=== PATIENT | male | born 1960 | race American Indian/Alaskan Native ===

== ENCOUNTER 2018-08-26 23:45 | Inpatient (IN) | payer OTHER ==
[2018-08-27 00:48] LABS: Basophils # (Auto) 0.1 K/mm3 (0.0-0.1); Basophils % (Auto) 0.9 % (0.0-1.8); Eosinophils % (Auto) 0.4 % (0.0-4.3); Hematocrit 42.8 % (35.5-45.6); Hemoglobin 14.3 gm/dl (11.8-15.2); Lymphocytes # (Auto) 1.6 K/mm3 (1.2-5.4); Lymphocytes % (Auto) 20.5 % (13.4-35.0); Mean Corpuscular HGB Conc 33 % (32-34); Mean Corpuscular Hemoglobin 31 pg (28-32); Mean Corpuscular Volume 93 fl (84-94); Monocytes # (Auto) 0.5 K/mm3 (0.0-0.8); Monocytes % (Auto) 6.6 % (0.0-7.3); Platelet Count 276 K/mm3 (140-440); Red Blood Count 4.59 M/mm3 (3.65-5.03); Red Cell Distribution Width 12.2 % (13.2-15.2)
[2018-08-27 00:50] LABS: BUN/Creatinine Ratio 17; Blood Urea Nitrogen 12 mg/dL (9-20); Calcium 8.7 mg/dL (8.4-10.2); Hemolysis Index 9
--- NOTE | 2018-08-27 01:00 | XRay Report ---
FINAL REPORT PROCEDURE: XR CHEST ROUTINE 2V TECHNIQUE: PA and lateral chest radiographs were obtained. CPT 34091 HISTORY: Shortness of breath COMPARISON: No prior studies are available for comparison. FINDINGS: Heart: Normal. Mediastinum/Vessels: Normal. Lungs/Pleural space: There are multifocal pulmonary infiltrates. The lungs are well-expanded. There is no pleural effusion or pneumothorax. Bony thorax: No acute osseous abnormality. Other: IMPRESSION: Heart size is normal. There are multifocal pulmonary infiltrates. This could be pneumonitis or pulmonary edema. The lungs are well-expanded. There is no pleural effusion or pneumothorax.
[2018-08-27] MEDS ORDERED: DUONEB *Not for PRN Use IH ONE (02:56)
[2018-08-27] MEDS ORDERED: LASIX IV ONE (03:53)
--- NOTE | 2018-08-27 04:10 | Emergency Department Report ---
ED Chest Pain HPI - General Chief Complaint: Dyspnea/Respdistress Stated Complaint: DIFF IN BREATHING,CP Time Seen by Provider: 08/27/18 02:42 Source: patient Mode of arrival: Ambulatory Limitations: No Limitations - History of Present Illness Initial Comments: 58-year-old male presents to the emergency department from home with complaint of a one-day history of shortness breath, wheezing, coughing and some chest pain. Patient was found to have a pulse ox of 91% on room air. He has a past history of diabetes and hypertension. He denies any tobacco or illicit drug use or abuse. He took some Mucinex for his symptoms with out much relief. No recent travel or sick contacts at home. His primary care physician is a Dr. Kleber Stoll. Severity scale (0 -10): 8 - Related Data Allergies Allergy/AdvReac Type Severity Reaction Status Date / Time No Known Allergies Allergy Unverified 08/27/18 00:19 Heart Score - HEART Score History: Slightly suspicious EKG: Non-specific Age: 45-65 Risk factors: 1-2 risk factors Troponin: < normal limit HEART Score: 3 - Critical Actions Critical Actions: 0-3 pts:0.9-1.7%risk of adverse cardiac event.Candidate for discharge ED Review of Systems ROS: Stated complaint: DIFF IN BREATHING,CP Other details as noted in HPI Comment: All other systems reviewed and negative Constitutional: denies: chills, fever Eyes: denies: eye pain, eye discharge, vision change ENT: denies: ear pain, throat pain Respiratory: cough, shortness of breath, wheezing Cardiovascular: chest pain. denies: palpitations Gastrointestinal: denies: abdominal pain, nausea, diarrhea Genitourinary: denies: urgency, dysuria Musculoskeletal: denies: back pain, joint swelling, arthralgia Skin: denies: rash, lesions Neurological: denies: headache, weakness, paresthesias ED Past Medical Hx - Past Medical History Hx Hypertension: Yes Hx Diabetes: Yes - Surgical History Additional Surgical History: Oral tumor. - Social History Smoking Status: Never Smoker Substance Use Type: None ED Physical Exam - General Limitations: No Limitations - Other Other exam information: GENERAL: The patient is well-developed well-nourished. HEENT: Normocephalic. Atraumatic. Patient has moist mucous membranes. EYES: Extraocular motions are intact. Pupils are equal and reactive to light bilaterally. NECK: Supple. Trachea is midline. CHEST/LUNGS: Coarse breath sounds at the chest. No tachypnea or accessory muscle use. There is no respiratory distress noted. HEART/CARDIOVASCULAR: Regular. There is no tachycardia. There is no gallop rub or murmur. ABDOMEN: Abdomen is soft, nontender. Patient has normal bowel sounds. There is no abdominal distention. SKIN: Skin is warm and dry. NEURO: The patient is awake, alert, and oriented. The patient is cooperative. The patient has no focal neurologic deficits. The patient has normal speech. MUSCULOSKELETAL: There is no tenderness or deformity. There is no limitation range of motion. There is no evidence of acute injury. ED Course Vital Signs 08/27/18 08/27/18 08/27/18 00:11 03:01 03:04 Temperature 97.7 F Pulse Rate 101 H 92 H Pulse Rate [ 90 Anterior Bilateral Throughout] Respiratory 20 17 Rate Respiratory 14 Rate [Anterior Bilateral Throughout] Blood Pressure 163/110 163/115 O2 Sat by Pulse 97 97 Oximetry 08/27/18 08/27/18 08/27/18 03:11 03:31 04:01 Temperature Pulse Rate 118 H 89 Pulse Rate [ 94 H Anterior Bilateral Throughout] Respiratory 19 18 Rate Respiratory 16 Rate [Anterior Bilateral Throughout] Blood Pressure 160/120 161/113 O2 Sat by Pulse 95 96 Oximetry 08/27/18 08/27/18 05:01 05:31 Temperature Pulse Rate 108 H 81 Pulse Rate [ Anterior Bilateral Throughout] Respiratory 17 17 Rate Respiratory Rate [Anterior Bilateral Throughout] Blood Pressure 143/100 149/120 O2 Sat by Pulse 94 97 Oximetry SCARLETT score - Scarlett Score Age > 65: (0) No Aspirin use within the Past 7 Days: (0) No 3 or more CAD Risk Factors: (0) No 2 or more Angina events in past 24 hrs: (1) Yes Known CAD with more than 50% Stenosis: (0) No Elevated Cardiac Markers: (0) No ST Deviation Greater than 0.5mm: (0) No SCARLETT Score: 1 ED Medical Decision Making - Lab Data Result diagrams: 08/27/18 00:22 08/27/18 00:22 - EKG Data -: EKG Interpreted by Ia EKG shows normal: sinus rhythm, axis, intervals, QRS complexes (Q waves to the anterior leads), ST-T waves (T-wave inversions to the lateral leads) Rate: tachycardia (106 bpm) - EKG Data When compared to previous EKG there are: previous EKG unavailable Interpretation: other (sinus tachycardia, Q waves to the anterior leads, T-wave inversions to the lateral leads) - Radiology Data Radiology results: image reviewed interpreted by me: Chest x-ray shows some pulmonary vascular congestion and some mild pulmonary edema. - Medical Decision Making Patient presents with some acute shortness of breath, chest discomfort, wheezing that started earlier in the day. He was found to triage to have low pulse ox on room air. He was placed on nasal cannula with some improvement. No signs of respiratory distress. He has some coarse breath sounds. Chest x- ray appears consistent with some pulmonary edema. BNP came back at about 1100. Negative first troponin. Negative d-dimer. EKG does not show any signs of ST elevation LA. He was given a breathing treatment and a dose of Lasix. He will be admitted to the hospital for further evaluation and treatment and was except for admission by the hospitalist, Dr. Hawley. - Differential Diagnosis CHF, LA, PE, pneumonia Critical Care Time: No Critical care attestation.: If time is entered above; I have spent that time in minutes in the direct care of this critically ill patient, excluding procedure time. ED Disposition Clinical Impression: CHF (congestive heart failure) Qualifiers: Heart failure type: unspecified Heart failure chronicity: acute Qualified Code( s): I50.9 - Heart failure, unspecified Dyspnea Qualifiers: Dyspnea type: shortness of breath Qualified Code(s): R06.02 - Shortness of breath; R06.00 - Dyspnea, unspecified; R06.01 - Orthopnea Hypertension Qualifiers: Hypertension type: essential hypertension Qualified Code(s): I10 - Essential ( primary) hypertension Disposition: OP ADMIT IP TO THIS HOSP Is pt being admited?: Yes Condition: Fair Time of Disposition: 06:36
[2018-08-27] MEDS ORDERED: TYLENOL PO PRN (05:13)
[2018-08-27] MEDS ORDERED: SODIUM CHLORIDE FLUSH SYRINGE 10 ML IV PRN (05:13)
[2018-08-27] MEDS ORDERED: D50W (25GM) Syringe IV PRN (05:13)
[2018-08-27] MEDS ORDERED: ZOFRAN IV PRN (05:13)
--- NOTE | 2018-08-27 05:13 | History and Physical Report ---
History of Present Illness Date of examination: 08/27/18 History of present illness: 71-year-old man with a history of hypertension, diabetes comes emergency room with complaints of shortness of breath, PND, orthopnea that started yesterday. Also complaining of chest pain in the left substernal area which he described as a tightness, constant, intensity 7/10, no radiation, can identify exacerbating or relieving factors. Denies nausea or vomiting, diaphoresis or palpitation. He had a stress test in April of this year, he was told he had a weak heart and has been following up with [facility] Review of systems Constitutional: no weight loss, chills, fever Ears, eyes, nose, mouth and throat: no nasal congestion, no nasal discharge, no sinus pressure, no vision change, no red eye. Neck: No neck pain or rigidity. Cardiovascular: no chest pain, palpitations Respiratory: no cough Gastrointestinal: no abdominal pain hematochezia Genitourinary : no frequency , no hematuria Musculoskeletal: no joint swelling or muscle ache Integumentary: no rash, no pruritis Neurological: no parathesias, no numbness, no focal weakness Endocrine: no cold or heat intolerance, no polyuria or polydipsia Hematologic/Lymphatic: no easy bruising, no easy bleeding, no gland swelling Allergic/Immunologic: no urticaria, no angioedema. PAST MEDICAL HISTORY: Diabetes, hypertension PAST SURGICAL HISTORY: Removal of oral tumor SOCIAL HISTORY: No alcohol, no drugs, tobacco FAMILY HISTORY: Diabetes, hypertension Medications and Allergies Allergies Allergy/AdvReac Type Severity Reaction Status Date / Time No Known Allergies Allergy Unverified 08/27/18 00:19 Exam - Physical Exam Narrative exam: Gen. appearance: Patient lying in bed, no apparent distress HEENT: Normocephalic, atraumatic, pupils equally round and reactive to light, extraocular movement intact, and no sclericterus,. No JVD or thyromegaly or nodule,neck supple, no carotid bruit ,mucous membranes moist, no exudate or erythema Heart: S1, S2, regular rate and rhythm Lungs: Crackles, breathing comfortable Abdomen: Positive bowel sounds, non-tender, nondistended, no organomegaly Extremity:no edema cyanosis, clubbing Skin: no rash, dry, warm Neuro: Oriented 3, cranial nerves II-12 intact, speech is fluent, motor and sensory intact - Constitutional Vitals: Temp Pulse Resp BP Pulse Ox 97.7 F 108 H 17 143/100 94 08/27/18 00:11 08/27/18 05:01 08/27/18 05:01 08/27/18 05:01 08/27/18 05:01 Results - Labs CBC & Chem 7: 08/27/18 00:22 08/27/18 00:22 Labs: Abnormal lab results 08/27/18 08/27/18 08/27/18 Range/Units 00:22 00:22 03:10 RDW 12.2 L (13.2-15.2) % Seg Neutrophils % 71.6 H (40.0-70.0) % POC ABG pCO2 (35-45) Sodium 134 L (137-145) mmol/L Chloride 97.7 L (98-107) mmol/L Creatinine 0.7 L (0.8-1.5) mg/dL Glucose 337 H (75-100) mg/dL NT-Pro-B Natriuret Pep 1151 H (0-900) pg/mL 08/27/18 Range/Units 03:16 RDW (13.2-15.2) % Seg Neutrophils % (40.0-70.0) % POC ABG pCO2 48.4 H (35-45) Sodium (137-145) mmol/L Chloride (98-107) mmol/L Creatinine (0.8-1.5) mg/dL Glucose (75-100) mg/dL NT-Pro-B Natriuret Pep (0-900) pg/mL - Imaging and Cardiology EKG: image reviewed Chest x-ray: report reviewed Assessment and Plan Assessment New-onset CHF, probably systolic dysfunction Chest pain Hypertension Diabetes Plan Admit to medicine Diurese his IV Lasix Check cardiac enzymes, echo, consult cardiology Start Beta bernie, LATONIA inhibitor, aspirin Monitor I's and O's, daily weights Check fingersticks and initiate insulin sliding scale DVT prophylaxis
[2018-08-27 05:24] LABS: Bilirubin,Urine NEG (Negative); Blood,Urine NEG (Negative); Color,Urine Colorless (Yellow); Protein,Urine <15 mg/dL mg/dL (Negative); Urobilinogen,Urine < 2.0 mg/dL (<2.0); WBC,Urine < 1.0 /HPF (0.0-6.0)
[2018-08-27 06:17] LABS: Creatine Kinase MB 3.2 ng/mL (0.0-4.0)
[2018-08-27] MEDS: LASIX IV SCH ×2 (06:44→18:13)
[2018-08-27] MEDS ORDERED: APRESOLINE IV PRN (07:19)
[2018-08-27] MEDS ORDERED: COREG PO SCH ×2 (10:00)
[2018-08-27] MEDS ORDERED: ZESTRIL PO SCH ×2 (10:00)
--- NOTE | 2018-08-27 10:52 | Consultation ---
History of Present Illness Consult date: 08/27/18 Consult reason: congestive heart failure History of present illness: 58 YO man with h/o non ischemic cardiomyopathy, htn, and DM presented to hospital with increasing dyspnea on exertion, PND, and orthopnea. He has not had any episodes of chest pain, syncope or pre-syncope. Elevated BNP and pulmonary edema on chest Xray were consistent with CHF exacerbation. Prior cardiac evaluation included echocardiogram on 03/10/16 which revealed EF of 35% and subsequent coronary angiogram revealed no significant CAD. ECG reveals NSR with evidence of prior anterior-septal ID Past History Past Medical History: CAD, diabetes, hypertension Past Surgical History: Other (resection of oral lesion) Social history: denies: smoking, alcohol abuse, IV drug use Family history: diabetes Medications and Allergies Allergies Allergy/AdvReac Type Severity Reaction Status Date / Time No Known Allergies Allergy Unverified 08/27/18 00:19 Active Meds: Active Medications Acetaminophen (Tylenol) 650 mg PO Q4H PRN PRN Reason: Pain MILD(1-3)/Fever >100.5/CANTRELL Aspirin (Baby Aspirin) 81 mg PO QDAY [facility] Carvedilol (Coreg) 25 mg PO BID [facility] Dextrose (D50w (25gm) Syringe) 50 ml IV PRN PRN PRN Reason: Hypoglycemia Enoxaparin Sodium (Lovenox) 40 mg SUB-Q QDAY [facility] Furosemide (Lasix) 40 mg IV BID@0600,1800 NANY Last Admin: 08/27/18 06:44 Dose: 40 mg Hydralazine HCl (Apresoline) 10 mg IV Q6HR PRN PRN Reason: Blood Pressure Insulin Glargine (Lantus) 15 units SUB-Q QHS [facility] Insulin Human Lispro (Humalog) 0 unit SUB-Q ACHS NANY; Protocol Lisinopril (Zestril) 40 mg PO QDAY [facility] Ondansetron HCl (Zofran) 4 mg IV Q8H PRN PRN Reason: Nausea And Vomiting Pneumococcal Polyvalent Vaccine (Pneumovax 23) 0.5 ml IM .ONCE ONE Stop: 08/27/18 12:01 Sodium Chloride (Sodium Chloride Flush Syringe 10 Ml) 10 ml IV BID NANY Sodium Chloride (Sodium Chloride Flush Syringe 10 Ml) 10 ml IV PRN PRN PRN Reason: LINE FLUSH Review of Systems All systems: negative (per hpi) Physical Examination Vital Signs Temp Pulse Resp BP Pulse Ox 97.7 F 101 H 20 163/110 97 08/27/18 00:11 08/27/18 00:11 08/27/18 00:11 08/27/18 00:11 08/27/18 00:11 General appearance: no acute distress Neck: Positive: neck supple Cardiac: Positive: Reg Rate and Rhythm. Negative: Audible Murmur Lungs: Positive: Rales (scattered crackles bilaterally) Abdomen: Positive: Soft, Active Bowel Sounds Extremities: Present: edema (trace LE edema) Results 08/27/18 00:22 08/27/18 00:22 Cardiac Enzymes 08/27/18 Range/Units 05:49 CK-MB (CK-2) 3.2 (0.0-4.0) ng/mL CBC 08/27/18 Range/Units 00:22 WBC 7.9 (4.5-11.0) K/mm3 RBC 4.59 (3.65-5.03) M/mm3 Hgb 14.3 (11.8-15.2) gm/dl Hct 42.8 (35.5-45.6) % Plt Count 276 (140-440) K/mm3 Lymph # 1.6 (1.2-5.4) K/mm3 [place] # 0.5 (0.0-0.8) K/mm3 Eos # 0.0 (0.0-0.4) K/mm3 Baso # 0.1 (0.0-0.1) K/mm3 Comprehensive Metabolic Panel 08/27/18 Range/Units 00:22 Sodium 134 L (137-145) mmol/L Potassium 4.5 (3.6-5.0) mmol/L Chloride 97.7 L (98-107) mmol/L Carbon Dioxide 25 (22-30) mmol/L BUN 12 (9-20) mg/dL Creatinine 0.7 L (0.8-1.5) mg/dL Glucose 337 H (75-100) mg/dL Calcium 8.7 (8.4-10.2) mg/dL Assessment and Plan Acute on chronic systolic heart failure NICMP with EF 35% based on echo 03/10/16 Htn DM Recommend: Continue IV diuresis Continue medical therapy for NICMP including beta benrie, LATONIA inhibitor Repeat echocardiogram
--- NOTE | 2018-08-27 11:11 | Event Note ---
Date: 08/27/18 Patient admitted today for new onset CHF with acute exacerbation. Patient seen and examined by me today. Continue current management.
[2018-08-27] MEDS: BABY ASPIRIN PO SCH (11:55)
[2018-08-27] MEDS: LOVENOX SUB-Q SCH (11:55)
[2018-08-27] MEDS: COREG PO SCH ×2 (11:56→22:23)
[2018-08-27] MEDS: SODIUM CHLORIDE FLUSH SYRINGE 10 ML IV SCH (11:56)
[2018-08-27] MEDS: ZESTRIL PO SCH (11:56)
[2018-08-27] MEDS ORDERED: PNEUMOVAX 23 IM ONE (12:00)
[2018-08-27] MEDS ORDERED: AFLURIA QUAD 2018-2019 SYRINGE IM ONE (12:00)
[2018-08-27 12:06] LABS: Creatine Kinase MB 2.9 ng/mL (0.0-4.0)
[2018-08-27] MEDS: HumaLOG SUB-Q SCH ×3 (12:08→22:22)
[2018-08-27] MEDS ORDERED: LANTUS SUB-Q SCH (22:00)
[2018-08-28] MEDS: SODIUM CHLORIDE FLUSH SYRINGE 10 ML IV SCH ×2 (02:00→10:10)
[2018-08-28] MEDS: LASIX IV SCH (06:10)
[2018-08-28 06:46] LABS: Basophils % (Auto) 0.4 % (0.0-1.8); Eosinophils % (Auto) 0.7 % (0.0-4.3); Hematocrit 42.8 % (35.5-45.6); Lymphocytes # (Auto) 1.9 K/mm3 (1.2-5.4); Lymphocytes % (Auto) 26.2 % (13.4-35.0); Mean Corpuscular HGB Conc 33 % (32-34); Mean Corpuscular Hemoglobin 30 pg (28-32); Mean Corpuscular Volume 93 fl (84-94); Monocytes # (Auto) 0.8 K/mm3 (0.0-0.8); Platelet Count 236 K/mm3 (140-440); Red Blood Count 4.61 M/mm3 (3.65-5.03); Red Cell Distribution Width 12.2 % (13.2-15.2)
[2018-08-28 07:12] LABS: BUN/Creatinine Ratio 18; Blood Urea Nitrogen 14 mg/dL (9-20); Calcium 8.9 mg/dL (8.4-10.2); Hemolysis Index 34
[2018-08-28] MEDS: HumaLOG SUB-Q SCH ×2 (09:38→12:10)
[2018-08-28] MEDS: BABY ASPIRIN PO SCH (10:09)
[2018-08-28] MEDS: LOVENOX SUB-Q SCH (10:09)
[2018-08-28] MEDS: ZESTRIL PO SCH (10:10)
[2018-08-28] MEDS: COREG PO SCH (10:10)
--- NOTE | 2018-08-28 10:30 | Progress Note ---
Assessment and Plan Assessment and plan: 71-year-old man with a history of hypertension, diabetes comes emergency room with complaints of shortness of breath, PND, orthopnea that started yesterday. Also complaining of chest pain in the left substernal area which he described as a tightness, constant, intensity 7/10, no radiation, can identify exacerbating or relieving factors. Denies nausea or vomiting, diaphoresis or palpitation. He had a stress test in April of this year, he was told he had a weak heart and has been following up with [facility] Cardiac catheterization patient had an ejection fraction of 35% previously New-onset CHF, probably systolic dysfunction Chest pain Hypertension Cardiomyopathy Diabetes Plan Continue current management. I've had extensive discussion with the patient about his dietary restrictions and also fluid restrictions the patient verbalized understanding 20 minutes spent counseling. Diurese his IV Lasix Continue diabetes management. I weights repeat echocardiogram Check A1c CONTINUE METFORMIN AT PATIENTS HOME DOSE ON DISCHARGE Start Beta bernie, LATONIA inhibitor, aspirin Monitor I's and O's, daily weights Check fingersticks and initiate insulin sliding scale DVT prophylaxis Discharge when plan by cardiology History Interval history: Patient is on examine this monitor reports medical improvement. Once into the discharge. He will follow up with cardiology outpatient. Hospitalist Physical - Physical exam Narrative exam: VITAL SIGNS: Reviewed. GENERAL: The patient appeared well nourished and normally developed. Vital signs as documented. HEAD: No signs of head trauma. EYES: Pupils are equal. Extraocular motions intact. EARS: Hearing grossly intact. MOUTH: Oropharynx is normal. NECK: No adenopathy, no JVD. CHEST: Chest with clear breath sounds bilaterally. No wheezes, rales, or rhonchi. CARDIAC: Regular rate and rhythm. S1 and S2, without murmurs, gallops, or rubs. VASCULAR: No Edema. Peripheral pulses normal and equal in all extremities. ABDOMEN: Soft, without detectable tenderness. No sign of distention. No rebound or guarding, and no masses palpated. Bowel Sounds normal. MUSCULOSKELETAL: Good range of motion of all major joints. Extremities without clubbing, cyanosis or edema. NEUROLOGIC EXAM: Alert and oriented x 3. No focal sensory or strength deficits. Speech normal. Follows commands. PSYCHIATRIC: Mood normal. SKIN: No rash or lesions. - Constitutional Vitals: Temp Pulse Resp BP Pulse Ox 98.2 F 81 18 126/77 98 08/28/18 08:45 08/28/18 08:45 08/28/18 08:45 08/28/18 08:45 08/28/18 08:45 General appearance: Present: no acute distress Results - Labs CBC & Chem 7: 08/28/18 05:19 08/28/18 05:19 Labs: Laboratory Last Values WBC 7.3 K/mm3 (4.5-11.0) 08/28/18 05:19 RBC 4.61 M/mm3 (3.65-5.03) 08/28/18 05:19 Hgb 14.0 gm/dl (11.8-15.2) 08/28/18 05:19 Hct 42.8 % (35.5-45.6) 08/28/18 05:19 MCV 93 fl (84-94) 08/28/18 05:19 MCH 30 pg (28-32) 08/28/18 05:19 MCHC 33 % (32-34) 08/28/18 05:19 RDW 12.2 % (13.2-15.2) L 08/28/18 05:19 Plt Count 236 K/mm3 (140-440) 08/28/18 05:19 Lymph % (Auto) 26.2 % (13.4-35.0) 08/28/18 05:19 [place] % (Auto) 11.0 % (0.0-7.3) H 08/28/18 05:19 Eos % (Auto) 0.7 % (0.0-4.3) 08/28/18 05:19 Baso % (Auto) 0.4 % (0.0-1.8) 08/28/18 05:19 Lymph # 1.9 K/mm3 (1.2-5.4) 08/28/18 05:19 [place] # 0.8 K/mm3 (0.0-0.8) 08/28/18 05:19 Eos # 0.0 K/mm3 (0.0-0.4) 08/28/18 05:19 Baso # 0.0 K/mm3 (0.0-0.1) 08/28/18 05:19 Seg Neutrophils % 61.7 % (40.0-70.0) 08/28/18 05:19 Seg Neutrophils # 4.5 K/mm3 (1.8-7.7) 08/28/18 05:19 D-Dimer 142.77 ng/mlDDU (0-234) 08/27/18 03:10 POC ABG pH 7.390 (7.35-7.45) 08/27/18 03:16 POC ABG pCO2 48.4 (35-45) H 08/27/18 03:16 POC ABG pO2 87 (80-105) 08/27/18 03:16 POC ABG HCO3 29.3 08/27/18 03:16 POC ABG Total CO2 31 08/27/18 03:16 POC ABG O2 Sat 96 08/27/18 03:16 POC ABG Base Excess 4 08/27/18 03:16 FiO2 28 % 08/27/18 03:16 Sodium 139 mmol/L (137-145) 08/28/18 05:19 Potassium 3.6 mmol/L (3.6-5.0) 08/28/18 05:19 Chloride 96.7 mmol/L (98-107) L 08/28/18 05:19 Carbon Dioxide 30 mmol/L (22-30) 08/28/18 05:19 Anion Gap 16 mmol/L 08/28/18 05:19 BUN 14 mg/dL (9-20) 08/28/18 05:19 Creatinine 0.8 mg/dL (0.8-1.5) 08/28/18 05:19 Estimated GFR > 60 ml/min 08/28/18 05:19 BUN/Creatinine Ratio 18 % 08/28/18 05:19 Glucose 111 mg/dL (75-100) H 08/28/18 05:19 POC Glucose 104 (70-105) 08/28/18 06:35 Calcium 8.9 mg/dL (8.4-10.2) 08/28/18 05:19 Total Creatine Kinase 147 units/L (55-170) 08/27/18 11:24 CK-MB (CK-2) 2.9 ng/mL (0.0-4.0) 08/27/18 11:24 CK-MB (CK-2) Rel Index 1.9 (0-4) 08/27/18 11:24 Troponin T < 0.010 ng/mL (0.00-0.029) 08/27/18 11:24 NT-Pro-B Natriuret Pep 1151 pg/mL (0-900) H 08/27/18 03:10 Urine Color Colorless (Yellow) 08/27/18 04:55 Urine Turbidity Clear (Clear) 08/27/18 04:55 Urine pH 6.0 (5.0-7.0) 08/27/18 04:55 Ur Specific [place] 1.005 (1.003-1.030) 08/27/18 04:55 Urine Protein <15 mg/dl mg/dL (Negative) 08/27/18 04:55 Urine Glucose (UA) >=500 mg/dL (Negative) 08/27/18 04:55 Urine Ketones Neg mg/dL (Negative) 08/27/18 04:55 Urine Blood Neg (Negative) 08/27/18 04:55 Urine Nitrite Neg (Negative) 08/27/18 04:55 Urine Bilirubin Neg (Negative) 08/27/18 04:55 Urine Urobilinogen < 2.0 mg/dL (<2.0) 08/27/18 04:55 Ur Leukocyte Esterase Neg (Negative) 08/27/18 04:55 Urine WBC (Auto) < 1.0 /HPF (0.0-6.0) 08/27/18 04:55 Urine RBC (Auto) 1.0 /HPF (0.0-6.0) 08/27/18 04:55
--- NOTE | 2018-08-28 11:15 | Progress Note ---
Assessment and Plan Acute on chronic systolic heart failure NICMP echo 03/2016 -LVEF 35% C 03/2016 -no significant CAD repeat echocardiogram revealed a LVEF 10-15% Htn DM Noncompliant with cardiac follow up. Recommend: Advised sodium/fluid restrictions. Continue medical therapy for NICMP. Stable cardiac cannon. Patient advised to f/u with [facility] in 3-5 days. Subjective Date of service: 08/28/18 Interval history: Patient reports he is feeling better; wants to go home. Objective Vital Signs Temp Pulse Resp BP Pulse Ox 08/28/18 10:00 100 08/28/18 08:45 98.2 F 81 18 126/77 98 08/28/18 04:09 97.6 F 84 18 131/86 95 08/28/18 00:28 98.0 F 17 89/58 08/27/18 20:40 88 08/27/18 19:36 98.7 F 88 18 139/88 95 08/27/18 17:30 97.7 F 86 18 137/88 98 08/27/18 12:05 98.1 F 18 144/97 - Physical Examination General: No Apparent Distress HEENT: Positive: PERRL Neck: Positive: neck supple Cardiac: Positive: Reg Rate and Rhythm Lungs: Positive: Decreased Breath Sounds Neuro: Positive: Grossly Intact Abdomen: Positive: Soft, Active Bowel Sounds Extremities: Absent: edema - Labs and Meds Cardiac Enzymes 08/27/18 Range/Units 11:24 CK-MB (CK-2) 2.9 (0.0-4.0) ng/mL CBC 08/28/18 Range/Units 05:19 WBC 7.3 (4.5-11.0) K/mm3 RBC 4.61 (3.65-5.03) M/mm3 Hgb 14.0 (11.8-15.2) gm/dl Hct 42.8 (35.5-45.6) % Plt Count 236 (140-440) K/mm3 Lymph # 1.9 (1.2-5.4) K/mm3 [place] # 0.8 (0.0-0.8) K/mm3 Eos # 0.0 (0.0-0.4) K/mm3 Baso # 0.0 (0.0-0.1) K/mm3 Comprehensive Metabolic Panel 10/22/18 Range/Units 05:19 Sodium 139 (137-145) mmol/L Potassium 3.6 (3.6-5.0) mmol/L Chloride 96.7 L (98-107) mmol/L Carbon Dioxide 30 (22-30) mmol/L BUN 14 (9-20) mg/dL Creatinine 0.8 (0.8-1.5) mg/dL Glucose 111 H (75-100) mg/dL Calcium 8.9 (8.4-10.2) mg/dL - Imaging and Cardiology EKG: image reviewed
[2018-08-28 11:52] VITALS: BP 113/65
--- NOTE | 2018-08-28 15:35 | Discharge Summary ---
Providers - Providers Date of Admission: 08/27/18 05:13 Attending physician: BARRON MCMAHAN MD 08/27/18 05:13 Consult to Physician [CONS] Routine Comment: Consulting Provider: YANIQUE DEMARCO Physician Instructions: Reason For Exam: chf new onset Primary care physician: [employer] Hospitalization Reason for admission: shortness of breath Condition: Stable Hospital course: 71-year-old man with a history of hypertension, diabetes comes emergency room with complaints of shortness of breath, PND, orthopnea that started yesterday. Also complaining of chest pain in the left substernal area which he described as a tightness, constant, intensity 7/10, no radiation, can identify exacerbating or relieving factors. Denies nausea or vomiting, diaphoresis or palpitation. He had a stress test in April of this year, he was told he had a weak heart and has been following up with [facility] Cardiac catheterization patient had an ejection fraction of 35% previously repeat echocardiogram showed an ejection fraction of 20% cardiology reviewed. This is likely secondary to nonischemic cardiomyopathy extensive discussion was had with the patient and the spouse about dietary restrictions fluid restrictions compliance with medical management with follow-up appointment patient was also recommended to follow up with cardiology in 3-5 days discussion with pertaining to sudden cardiac was had with the patient were answered. Discharge diagnosis New-onset CHF, probably systolic dysfunction Chest pain Hypertension Ischemic cardiomyopathy Diabetes Disposition: DC- TO HOME OR SELFCARE Time spent for discharge: 35 MINS Core Measure Documentation - Palliative Care Palliative Care/ Comfort Measures: Not Applicable - Core Measures Any of the following diagnoses?: heart failure - VTE Discharge Requirements Deep Vein Thrombosis/Pulmonary Embolism Present on Admission: No - Heart Failure Discharge Requirements LATONIA/ARB for LVSD if EF <40%: Yes Beta bernie at discharge: Yes Exam - Physical Exam Narrative exam: VITAL SIGNS: Reviewed. GENERAL: The patient appeared well nourished and normally developed. Vital signs as documented. HEAD: No signs of head trauma. EYES: Pupils are equal. Extraocular motions intact. EARS: Hearing grossly intact. MOUTH: Oropharynx is normal. NECK: No adenopathy, no JVD. CHEST: Chest with clear breath sounds bilaterally. No wheezes, rales, or rhonchi. CARDIAC: Regular rate and rhythm. S1 and S2, without murmurs, gallops, or rubs. VASCULAR: No Edema. Peripheral pulses normal and equal in all extremities. ABDOMEN: Soft, without detectable tenderness. No sign of distention. No rebound or guarding, and no masses palpated. Bowel Sounds normal. MUSCULOSKELETAL: Good range of motion of all major joints. Extremities without clubbing, cyanosis or edema. NEUROLOGIC EXAM: Alert and oriented x 3. No focal sensory or strength deficits. Speech normal. Follows commands. PSYCHIATRIC: Mood normal. SKIN: No rash or lesions. - Constitutional Vitals: Temp Pulse Resp BP Pulse Ox 98.2 F 80 20 113/65 98 08/28/18 11:50 08/28/18 11:50 08/28/18 11:50 08/28/18 11:50 08/28/18 11:50 Plan Follow up with: [facility] [Provider Group] - 7 Days YANIQUE DEMARCO MD [Staff Physician] - 7 Days PRIMARY MD VICTORIANO [Primary Care Provider] - 3-5 Days Prescriptions: Insulin Glargine [Lantus VIAL] 15 units SUB-Q QHS 30 Days units Aspirin [Aspirin BABY CHEW TAB] 81 mg PO QDAY #30 tab.chew Furosemide [Lasix TAB] 40 mg PO QDAY #30 tablet Lisinopril [Zestril TAB] 40 mg PO QDAY #30 tablet
== END 2018-08-28 15:00 | disposition home or self-care (01) | DRG 293 ==
LOC: ED 23:45 → 4A 08-27 05:13
PROVIDERS: ADMIT Internal Medicine; ATTEND Internal Medicine
PROC: 3E0234Z Introduction of Serum, Toxoid and Vaccine into Muscle, Percutaneous Approach (ICD-10-PCS; principal; 2018-08-27)
PROC: 4A033R1 Measurement of Arterial Saturation, Peripheral, Percutaneous Approach (ICD-10-PCS; 2018-08-27)
DX: I11.0 Hypertensive heart disease with heart failure (principal); E11.9 Type 2 diabetes mellitus without complications; I50.23 Acute on chronic systolic (congestive) heart failure; I25.10 Atherosclerotic heart disease of native coronary artery without angina pectoris; I25.5 Ischemic cardiomyopathy; Z91.14 Patient's other noncompliance with medication regimen; Z83.3 Family history of diabetes mellitus; Z82.49 Family history of ischemic heart disease and other diseases of the circulatory system; Z23 Encounter for immunization
CPT/HCPCS: 36415; 71046; 80048; 81001; 82550; 82553; 82803; 82962; 83880; 84484; 85025; 85379; 90686; 90732; 93005; 93010; 93306; 94640; 94760; 96374; J1650; J1815; J1940